=== PATIENT | female | born 1980 | race Caucasian/White ===

== ENCOUNTER 2016-11-28 15:30 | Emergency (ER) | payer OTHER ==
[~2016-11-28] VITALS: Ht 167.6 cm; Wt 50.4 kg
[~2016-11-28 15:30] MED LIST: CIPROFLOXACIN500 M1 PO; CLEOCIN150 MG PO; CLINDAMYCIN HC300 MG PO; FERGON324 MG PO; FLEXERIL10 MG PO; FLEXERIL5 MG PO; GABAPENTIN100 MG PO; IBUPROFEN800 MG PO; LORTAB 5-325 M1 EACH PO; NAPROSYN500 MG PO; NAPROXEN500 MG PO; PERCOCET 5/31 TABLET PO; PERIDEX1 ML MM; PREDNISONE10 MG PO; PREDNISONE20 MG PO; TYLENOL WITH C1 EACH PO; ULTRAM50 MG PO
[2016-11-28] MEDS ORDERED: RISPERIDONE0.5 MG PO (15:48)
[2016-11-28] MEDS ORDERED: BUSPAR7.5 MG PO (15:49)
[2016-11-28] MEDS ORDERED: IBUPROFEN800 MG PO (15:49)
[2016-11-28] MEDS ORDERED: GABAPENTIN600 MG PO (15:49)
[2016-11-28] MEDS ORDERED: ULTRACET1 TABLET PO (16:34)
[2016-11-28] MEDS ORDERED: PREDNISONE20 MG PO (16:34)
[2016-11-28 16:54] VITALS: BP 124/76
== END 2016-11-28 16:55 | disposition home or self-care (01) ==
LOC: EME 15:30
DX: G89.18 Other acute postprocedural pain (principal); K08.89 Other specified disorders of teeth and supporting structures
CPT/HCPCS: 99281; 99283; J3010; J7512

== ENCOUNTER 2016-12-02 16:33 | Emergency (ER) | payer OTHER ==
[~2016-12-02] VITALS: Ht 172.7 cm; Wt 49.2 kg
[~2016-12-02 16:33] MED LIST changes: +BUSPAR7.5 MG PO; +GABAPENTIN600 MG PO; +RISPERIDONE0.5 MG PO; +ULTRACET1 TABLET PO
[2016-12-02] MEDS ORDERED: LIDOCAINE20 MG/1 M5 PO (17:49)
[2016-12-02] MEDS ORDERED: PERIDEX1 ML MM (17:49)
[2016-12-02 18:04] VITALS: BP 134/89
== END 2016-12-02 18:05 | disposition home or self-care (01) ==
LOC: EME 16:33
DX: K08.89 Other specified disorders of teeth and supporting structures (principal)
CPT/HCPCS: 99281; 99283

== ENCOUNTER 2016-12-20 05:22 | Emergency (ER) | payer OTHER ==
[~2016-12-20] VITALS: Ht 170.2 cm; Wt 48.5 kg
[~2016-12-20 05:22] MED LIST changes: +LIDOCAINE20 MG/1 M5 PO
[2016-12-20 06:07] LABS: HEMATOCRIT 37.8 % (36.0-46.0); MCV 93.8 FL (83-99); MEAN PLAT.VOLUME 11.5 uM^3 (9.5-12.4); PLATELET COUNT 170 K/uL (156-360); RBC DIS.WIDTH-CV 14.1 % (11.8-14.6); RBC DIS.WIDTH-SD 48.4 % (39-53); RED BLOOD COUNT 4.03 M/uL (3.80-5.20); WHITE BLOOD COUNT 3.7 K/uL (4.1-10.2)
[2016-12-20 06:18] LABS: CHLORIDE 112 mEq/L (99-109); POTASSIUM 3.5 mEq/L (3.7-5.4); SODIUM 143 mEq/L (136-147)
[2016-12-20 06:20] LABS: GLUCOSE 109 mg/dL (70-99)
[2016-12-20 06:21] LABS: ANION GAP 11 MEQ/L (2-14)
[2016-12-20 06:22] LABS: INFLUENZA A VIRAL ANTIGEN NEGATIVE; INFLUENZA B VIRAL ANTIGEN NEGATIVE
[2016-12-20 06:24] LABS: GFR ESTIMATE (CALCULATED) > 59 mL/min/; UREA NITROGEN (BUN) 19 mg/dL (9-23)
[2016-12-20] MEDS ORDERED: TESSALON PERLE100 MG PO (06:31)
[2016-12-20 06:56] VITALS: BP 126/73
== END 2016-12-20 06:58 | disposition home or self-care (01) ==
LOC: EME 05:22
PROVIDERS: Emergency Medicine
DX: B34.9 Viral infection, unspecified (principal); J45.909 Unspecified asthma, uncomplicated; R10.9 Unspecified abdominal pain; F41.9 Anxiety disorder, unspecified; F17.200 Nicotine dependence, unspecified, uncomplicated
CPT/HCPCS: 71020; 80048; 85027; 87502; 94640; 99281; 99283; J1885

== ENCOUNTER 2016-12-25 19:17 | Emergency (ER) | payer OTHER ==
[~2016-12-25] VITALS: Ht 170.2 cm; Wt 47.7 kg
[~2016-12-25 19:17] MED LIST changes: +TESSALON PERLE100 MG PO
[2016-12-25 20:31] LABS: ADD MIUA? NO; BILIRUBIN NEGATIVE; BLOOD NEGATIVE; COLOR YELLOW ((YELLOW)); GLUCOSE (STRIP) NEGATIVE; KETONES NEGATIVE; LEUKOCYTES NEGATIVE; NITRITE NEGATIVE; PROTEIN (STRIP) NEGATIVE; SPECIFIC GRAVITY 1.023 (1.000-1.030); UCUL ADDED? NO; UROBILINOGEN 0.2 MG/DL (0.2-1.0)
[2016-12-25] MEDS ORDERED: VALIUM5 MG PO (23:58)
[2016-12-26 00:18] VITALS: BP 128/79
== END 2016-12-26 00:19 | disposition home or self-care (01) ==
LOC: EME 19:17
DX: M79.604 Pain in right leg (principal); M79.605 Pain in left leg; M54.5 Low back pain; F17.200 Nicotine dependence, unspecified, uncomplicated; Z71.6 Tobacco abuse counseling; Z88.0 Allergy status to penicillin; Z88.6 Allergy status to analgesic agent
CPT/HCPCS: 81003; 99281; 99284; J1100

== ENCOUNTER 2016-12-26 14:21 | Emergency (ER) | payer OTHER ==
[~2016-12-26] VITALS: Ht 170.2 cm; Wt 47.7 kg
[~2016-12-26 14:21] MED LIST changes: +VALIUM5 MG PO
[2016-12-26 18:43] LABS: HEMATOCRIT 40.5 % (36.0-46.0); MCH 30.7 PG (29.0-34.0); MCHC 33.1 G/DL (30.0-36.0); MCV 92.7 FL (83-99); PLATELET COUNT 203 K/uL (156-360); RBC DIS.WIDTH-CV 14.3 % (11.8-14.6); RBC DIS.WIDTH-SD 48.8 % (39-53); RED BLOOD COUNT 4.37 M/uL (3.80-5.20)
[2016-12-26 18:54] LABS: CHLORIDE 111 mEq/L (99-109); POTASSIUM 4.1 mEq/L (3.7-5.4); SODIUM 138 mEq/L (136-147)
[2016-12-26 18:55] LABS: GLUCOSE 105 mg/dL (70-99)
[2016-12-26 18:57] LABS: ANION GAP 9 MEQ/L (2-14)
[2016-12-26 18:59] LABS: GFR ESTIMATE (CALCULATED) > 59 mL/min/; QUANTITATIVE HCG < 4.0 MIU/ML
[2016-12-26 19:00] LABS: UREA NITROGEN (BUN) 16 mg/dL (9-23)
[2016-12-26 19:22] LABS: WHITE BLOOD COUNT 8.9 K/uL (4.1-10.2)
[2016-12-26 19:56] LABS: ERTH.SED.RATE 7 MM/HR (0-20)
[2016-12-26 22:13] LABS: ADD MIUA? YES; BILIRUBIN NEGATIVE; BLOOD NEGATIVE; COLOR YELLOW ((YELLOW)); GLUCOSE (STRIP) NEGATIVE; KETONES 5; LEUKOCYTES NEGATIVE; NITRITE NEGATIVE; PROTEIN (STRIP) 30; SPECIFIC GRAVITY 1.031 (1.000-1.030); UROBILINOGEN 0.2 MG/DL (0.2-1.0)
[2016-12-26 22:42] LABS: BACTERIA NONE SEEN /HPF; EPITHELIAL CELLS 1+ /HPF; MUCUS 2+ /LPF; RED BLOOD CELLS 0-5 /HPF (0-5); UCUL ADDED? NO; WHITE BLOOD CELLS 0-5 /HPF (0-5)
[2016-12-26 23:05] VITALS: BP 121/70
== END 2016-12-26 23:08 | disposition home or self-care (01) ==
LOC: EME 14:21
PROVIDERS: Physician Assistant
DX: M54.5 Low back pain (principal); R20.2 Paresthesia of skin; M79.651 Pain in right thigh; M79.652 Pain in left thigh; R32 Unspecified urinary incontinence; F17.200 Nicotine dependence, unspecified, uncomplicated
CPT/HCPCS: 72148; 80048; 81003; 84702; 85027; 85651; 99281; 99285; J1100; J2270

== ENCOUNTER 2017-01-26 12:58 | Emergency (ER) | payer OTHER ==
[~2017-01-26] VITALS: Ht 170.2 cm; Wt 48.4 kg
[2017-01-26] MEDS ORDERED: ULTRAM50 MG PO (14:07)
[2017-01-26] MEDS ORDERED: NAPROSYN500 MG PO (14:07)
[2017-01-26 14:31] VITALS: BP 105/65
== END 2017-01-26 14:32 | disposition home or self-care (01) ==
LOC: EME 12:58
DX: S92.514A Nondisplaced fracture of proximal phalanx of right lesser toe(s), initial encounter for closed fracture (principal); S90.31XA Contusion of right foot, initial encounter; W22.09XA Striking against other stationary object, initial encounter; Z88.0 Allergy status to penicillin; Z88.8 Allergy status to other drugs, medicaments and biological substances; Z88.6 Allergy status to analgesic agent
CPT/HCPCS: 73630; 99281; 99284

== ENCOUNTER 2017-02-20 09:32 | Emergency (ER) | payer OTHER ==
[~2017-02-20] VITALS: Ht 167.6 cm; Wt 48.6 kg
[2017-02-20 11:00] LABS: HEMATOCRIT 40.4 % (36.0-46.0); MCH 30.6 PG (29.0-34.0); MCHC 32.9 G/DL (30.0-36.0); MCV 92.9 FL (83-99); MEAN PLAT.VOLUME 11.9 uM^3 (9.5-12.4); PLATELET COUNT 179 K/uL (156-360); RBC DIS.WIDTH-CV 14.3 % (11.8-14.6); RBC DIS.WIDTH-SD 49.3 % (39-53); RED BLOOD COUNT 4.35 M/uL (3.80-5.20)
[2017-02-20 11:10] LABS: ADD MIUA? NO; BILIRUBIN NEGATIVE; BLOOD NEGATIVE; COLOR YELLOW ((YELLOW)); GLUCOSE (STRIP) NEGATIVE; KETONES NEGATIVE; LEUKOCYTES NEGATIVE; NITRITE NEGATIVE; PROTEIN (STRIP) NEGATIVE; SPECIFIC GRAVITY 1.018 (1.000-1.030); UCUL ADDED? NO; UROBILINOGEN 0.2 MG/DL (0.2-1.0)
[2017-02-20 11:17] LABS: CHLORIDE 108 mEq/L (99-109); POTASSIUM 3.9 mEq/L (3.7-5.4); SODIUM 140 mEq/L (136-147)
[2017-02-20 11:19] LABS: GLUCOSE 92 mg/dL (70-99)
[2017-02-20 11:21] LABS: ANION GAP 10 MEQ/L (2-14); TOTAL BILIRUBIN 0.4 mg/dL (0.0-1.0)
[2017-02-20 11:23] LABS: ALKALINE PHOSPHATASE 42 IU/L (3-129); GFR ESTIMATE (CALCULATED) > 59 mL/min/
[2017-02-20 11:24] LABS: UREA NITROGEN (BUN) 19 mg/dL (9-23)
[2017-02-20 11:34] LABS: QUANTITATIVE HCG < 4.0 MIU/ML
[2017-02-20] MEDS ORDERED: COLACE100 MG PO (12:06)
[2017-02-20 12:20] VITALS: BP 120/68
== END 2017-02-20 12:21 | disposition home or self-care (01) ==
LOC: EME 09:32
PROVIDERS: Nurse Practitioner Family
DX: R10.32 Left lower quadrant pain (principal); K59.00 Constipation, unspecified; R55 Syncope and collapse; R30.0 Dysuria; Z88.0 Allergy status to penicillin; Z88.6 Allergy status to analgesic agent; F17.200 Nicotine dependence, unspecified, uncomplicated
CPT/HCPCS: 74020; 80053; 81003; 84702; 85027; 93005; 99281; 99284; J3010

== ENCOUNTER 2017-07-17 16:45 | Emergency (ER) | payer OTHER ==
[~2017-07-17] VITALS: Ht 170.2 cm; Wt 49.3 kg
[~2017-07-17 16:45] MED LIST changes: +COLACE100 MG PO
[2017-07-17 17:22] LABS: HEMATOCRIT 40.1 % (36.0-46.0); MCH 31.7 PG (29.0-34.0); MCHC 33.7 G/DL (30.0-36.0); MCV 94.1 FL (83-99); MEAN PLAT.VOLUME 11.5 uM^3 (9.5-12.4); PLATELET COUNT 192 K/uL (156-360); RBC DIS.WIDTH-CV 12.7 % (11.8-14.6); RBC DIS.WIDTH-SD 43.8 % (39-53); RED BLOOD COUNT 4.26 M/uL (3.80-5.20); WHITE BLOOD COUNT 4.3 K/uL (4.1-10.2)
[2017-07-17 17:33] LABS: CHLORIDE 104 mEq/L (99-109); POTASSIUM 3.9 mEq/L (3.7-5.4); SODIUM 139 mEq/L (136-147)
[2017-07-17 17:35] LABS: GLUCOSE 98 mg/dL (70-99)
[2017-07-17 17:37] LABS: ANION GAP 10 MEQ/L (2-14)
[2017-07-17 17:39] LABS: GFR ESTIMATE (CALCULATED) > 59 mL/min/
[2017-07-17 17:40] LABS: UREA NITROGEN (BUN) 14 mg/dL (9-23)
[2017-07-17 17:42] LABS: TROP-I INTERPRETATION NEGATIVE; TROPONIN-I < 0.01 ng/mL (0.0-0.30)
[2017-07-17 17:48] LABS: QUANTITATIVE HCG < 4.0 MIU/ML
[2017-07-17] MEDS ORDERED: INDOCIN50 MG PO (20:41)
[2017-07-17 20:54] LABS: TROP-I INTERPRETATION NEGATIVE; TROPONIN-I < 0.01 ng/mL (0.0-0.30)
[2017-07-17 21:27] VITALS: BP 125/80
== END 2017-07-17 21:28 | disposition home or self-care (01) ==
LOC: EME 16:45
PROVIDERS: Physician Assistant
DX: R07.89 Other chest pain (principal); M54.2 Cervicalgia; R20.0 Anesthesia of skin; R06.00 Dyspnea, unspecified; R42 Dizziness and giddiness; I45.10 Unspecified right bundle-branch block; F17.200 Nicotine dependence, unspecified, uncomplicated
CPT/HCPCS: 71020; 80048; 84443; 84484; 84702; 85027; 85379; 93005; 99281; 99284; J1885; J3010

== ENCOUNTER 2017-08-13 16:46 | Emergency (ER) | payer OTHER ==
[~2017-08-13] VITALS: Ht 170.2 cm; Wt 51.1 kg
[~2017-08-13 16:46] MED LIST changes: +ATARAX,VISTARIL50 MG PO; +INDOCIN50 MG PO
[2017-08-13 16:53] VITALS: BP 131/80
[2017-08-13] MEDS ORDERED: NORCO 5/3251 TABLET PO (17:25)
[2017-08-13] MEDS ORDERED: CLEOCIN300 MG PO (17:25)
== END 2017-08-13 17:51 | disposition home or self-care (01) ==
LOC: RME 16:46 → EME 16:46 → RME 17:51
DX: K08.89 Other specified disorders of teeth and supporting structures (principal); K05.10 Chronic gingivitis, plaque induced; F17.200 Nicotine dependence, unspecified, uncomplicated; Z88.0 Allergy status to penicillin; Z88.6 Allergy status to analgesic agent
CPT/HCPCS: 99281; 99284

== ENCOUNTER 2017-08-26 16:19 | Emergency (ER) | payer OTHER ==
[~2017-08-26] VITALS: Ht 170.2 cm; Wt 48.4 kg
[~2017-08-26 16:19] MED LIST changes: +CLEOCIN300 MG PO; +NORCO 5/3251 TABLET PO
[2017-08-26] MEDS ORDERED: CLEOCIN150 MG PO (19:41)
[2017-08-26] MEDS ORDERED: TRAMADOL HCL50 MG PO (19:41)
[2017-08-26 20:35] VITALS: BP 111/60
== END 2017-08-26 20:36 | disposition home or self-care (01) ==
LOC: EME 16:19
PROC: 0C96XZZ Drainage of Lower Gingiva, External Approach (ICD-10-PCS; principal; 2017-08-26)
DX: K04.7 Periapical abscess without sinus (principal); Z88.0 Allergy status to penicillin
CPT/HCPCS: 99281; 99284; S0020

== ENCOUNTER 2017-08-28 16:25 | Emergency (ER) | payer OTHER ==
[~2017-08-28] VITALS: Ht 170.2 cm; Wt 50.8 kg
[~2017-08-28 16:25] MED LIST changes: +TRAMADOL HCL50 MG PO
[2017-08-28] MEDS ORDERED: ULTRAM50 MG PO (18:51)
[2017-08-28] MEDS ORDERED: PERIOGARD473 ML MM (18:51)
[2017-08-28 19:07] VITALS: BP 131/77
== END 2017-08-28 19:08 | disposition home or self-care (01) ==
LOC: EME 16:25
DX: K04.7 Periapical abscess without sinus (principal); F17.200 Nicotine dependence, unspecified, uncomplicated; Z88.5 Allergy status to narcotic agent; Z88.0 Allergy status to penicillin; Z88.6 Allergy status to analgesic agent
CPT/HCPCS: 81003; 99281; 99283

== ENCOUNTER 2017-09-19 13:15 | Emergency (ER) | payer OTHER ==
[~2017-09-19] VITALS: Ht 170.2 cm; Wt 48.1 kg
[~2017-09-19 13:15] MED LIST changes: +PERIOGARD473 ML MM
[2017-09-19] MEDS ORDERED: ULTRAM50 MG PO (16:04)
[2017-09-19 16:14] VITALS: BP 127/76
== END 2017-09-19 16:17 | disposition home or self-care (01) ==
LOC: EME 13:15
DX: M54.32 Sciatica, left side (principal); M54.16 Radiculopathy, lumbar region; F17.200 Nicotine dependence, unspecified, uncomplicated; Z88.5 Allergy status to narcotic agent; Z88.0 Allergy status to penicillin; Z88.6 Allergy status to analgesic agent
CPT/HCPCS: 99281; 99283

== ENCOUNTER 2017-09-24 12:13 | Emergency (ER) | payer OTHER ==
[~2017-09-24] VITALS: Ht 170.2 cm; Wt 47.4 kg
[2017-09-24] MEDS ORDERED: ULTRAM ER200 MG PO (13:36)
[2017-09-24] MEDS ORDERED: MOTRIN800 MG PO (13:36)
[2017-09-24 13:57] VITALS: BP 119/96
== END 2017-09-24 13:58 | disposition home or self-care (01) ==
LOC: RME 12:13 → EME 12:13 → RME 13:58
DX: S30.0XXA Contusion of lower back and pelvis, initial encounter (principal); G89.29 Other chronic pain; W10.8XXA Fall (on) (from) other stairs and steps, initial encounter; Y92.008 Other place in unspecified non-institutional (private) residence as the place of occurrence of the external cause; Y93.E9 Activity, other interior property and clothing maintenance; Z88.0 Allergy status to penicillin; Z88.5 Allergy status to narcotic agent; Z88.6 Allergy status to analgesic agent; Z88.8 Allergy status to other drugs, medicaments and biological substances
CPT/HCPCS: 72100; 99281; 99283

== ENCOUNTER 2017-10-11 11:27 | Emergency (ER) | payer OTHER ==
[~2017-10-11] VITALS: Ht 170.2 cm; Wt 47.5 kg
[~2017-10-11 11:27] MED LIST changes: +MOTRIN800 MG PO; +ULTRAM ER200 MG PO
[2017-10-11 13:39] LABS: HEMATOCRIT 41.6 % (36.0-46.0); HEMOGLOBIN 14.1 G/DL (11.9-15.5); MCH 32.1 PG (29.0-34.0); MCHC 33.9 G/DL (30.0-36.0); MCV 94.8 FL (83-99); PLATELET COUNT 195 K/uL (156-360); RBC DIS.WIDTH-CV 13.2 % (11.8-14.6); RBC DIS.WIDTH-SD 46.6 % (39-53); RED BLOOD COUNT 4.39 M/uL (3.80-5.20); WHITE BLOOD COUNT 4.5 K/uL (4.1-10.2)
[2017-10-11 13:48] LABS: ALBUMIN 4.5 g/dL (3.2-4.8)
[2017-10-11 13:49] LABS: CHLORIDE 107 mEq/L (99-109); SODIUM 139 mEq/L (136-147)
[2017-10-11 13:51] LABS: GLUCOSE 102 mg/dL (70-99)
[2017-10-11 13:53] LABS: TOTAL BILIRUBIN 0.5 mg/dL (0.0-1.0)
[2017-10-11 13:54] LABS: ALKALINE PHOSPHATASE 50 IU/L (3-129)
[2017-10-11 13:55] LABS: CREATININE 0.7 mg/dL (0.6-1.3); GFR ESTIMATE (CALCULATED) > 59 mL/min/
[2017-10-11 13:56] LABS: AST (GOT) 20 IU/L (2-34); UREA NITROGEN (BUN) 11 mg/dL (9-23)
[2017-10-11 13:58] LABS: ALT (GPT) 19 IU/L (3-49); LIPASE 10 U/L (1.0-51.0)
[2017-10-11 14:05] LABS: QUANTITATIVE HCG < 4.0 MIU/ML
[2017-10-11 15:13] LABS: APPEARANCE CLEAR ((CLEAR)); BILIRUBIN NEGATIVE; BLOOD LARGE; COLOR COLORLESS ((YELLOW)); GLUCOSE (STRIP) NEGATIVE; KETONES 5; LEUKOCYTES NEGATIVE; NITRITE NEGATIVE; PROTEIN (STRIP) NEGATIVE; SPECIFIC GRAVITY 1.006 (1.000-1.030); UROBILINOGEN 0.2 MG/DL (0.2-1.0)
[2017-10-11 15:20] LABS: BACTERIA RARE /HPF; EPITHELIAL CELLS RARE /HPF; MUCUS NONE SEEN /LPF; RED BLOOD CELLS 0-5 /HPF (0-5); WHITE BLOOD CELLS 0-5 /HPF (0-5)
[2017-10-11] MEDS ORDERED: ZOFRAN ODT4 MG PO (15:21)
[2017-10-11] MEDS ORDERED: NAPROSYN500 MG PO (15:21)
[2017-10-11 15:31] VITALS: BP 109/82
== END 2017-10-11 15:32 | disposition home or self-care (01) ==
LOC: EME 11:27
PROVIDERS: Nurse Practitioner Family
DX: N93.9 Abnormal uterine and vaginal bleeding, unspecified (principal); R10.2 Pelvic and perineal pain; F41.9 Anxiety disorder, unspecified; I34.1 Nonrheumatic mitral (valve) prolapse; F17.200 Nicotine dependence, unspecified, uncomplicated; Z88.5 Allergy status to narcotic agent; Z88.0 Allergy status to penicillin; Z88.6 Allergy status to analgesic agent
CPT/HCPCS: 76856; 80048; 80053; 81003; 83690; 84702; 85027; 99281; 99284

== ENCOUNTER 2017-11-09 08:13 | Inpatient (IN) | payer OTHER ==
[~2017-11-09] VITALS: Ht 170.2 cm; Wt 43.5 kg
[~2017-11-09 08:13] MED LIST changes: +ZOFRAN ODT4 MG PO
[2017-11-09 08:43] LABS: HEMATOCRIT 37.3 % (36.0-46.0); HEMOGLOBIN 12.4 G/DL (11.9-15.5); MCH 32.1 PG (29.0-34.0); MCHC 33.2 G/DL (30.0-36.0); MCV 96.6 FL (83-99); RBC DIS.WIDTH-CV 13.1 % (11.8-14.6); RBC DIS.WIDTH-SD 46.4 % (39-53); RED BLOOD COUNT 3.86 M/uL (3.80-5.20); WHITE BLOOD COUNT 20.2 K/uL (4.1-10.2)
[2017-11-09 08:44] LABS: PLATELET COUNT 240 K/uL (156-360)
[2017-11-09 08:51] LABS: ALBUMIN 4.4 g/dL (3.2-4.8); CHLORIDE 102 mEq/L (99-109); POTASSIUM 4.6 mEq/L (3.7-5.4); SODIUM 140 mEq/L (136-147)
[2017-11-09 08:53] LABS: GLUCOSE 132 mg/dL (70-99); TOTAL PROTEIN 7.2 g/dL (6.4-8.3)
[2017-11-09 08:55] LABS: TOTAL BILIRUBIN 0.2 mg/dL (0.0-1.0)
[2017-11-09 08:57] LABS: ALKALINE PHOSPHATASE 96 IU/L (3-129); CREATININE 1.3 mg/dL (0.6-1.3); GFR ESTIMATE (CALCULATED) 50 mL/min/
[2017-11-09 08:58] LABS: UREA NITROGEN (BUN) 26 mg/dL (9-23)
[2017-11-09 08:59] LABS: AST (GOT) 909 IU/L (2-34)
[2017-11-09 09:00] LABS: ALT (GPT) 572 IU/L (3-49)
[2017-11-09 09:06] LABS: QUANTITATIVE HCG < 4.0 MIU/ML
[2017-11-09 09:55] LABS: APPEARANCE SL.HAZY ((CLEAR)); BILIRUBIN NEGATIVE; BLOOD NEGATIVE; COLOR YELLOW ((YELLOW)); GLUCOSE (STRIP) 50; KETONES 5; LEUKOCYTES NEGATIVE; NITRITE NEGATIVE; PROTEIN (STRIP) 100; SPECIFIC GRAVITY 1.016 (1.000-1.030); UROBILINOGEN 0.2 MG/DL (0.2-1.0)
[2017-11-09 10:11] LABS: BACTERIA RARE /HPF; EPITHELIAL CELLS 1+ /HPF; MUCUS TRACE /LPF; RED BLOOD CELLS 0-5 /HPF (0-5); UCUL ADDED? NO; WHITE BLOOD CELLS 0-5 /HPF (0-5)
[2017-11-09 14:11] LABS: ACETAMINOPHEN (TYLENOL) < 10 mcg/mL (10-30); SALICYLATE < 5.0 MG/DL (15-30)
[2017-11-09 14:15] VITALS: BP 101/54
[2017-11-09 20:15] VITALS: BP 104/49
[2017-11-09 23:52] VITALS: BP 105/51
[2017-11-10 03:48] VITALS: BP 103/65
[2017-11-10 06:10] LABS: HEMATOCRIT 31.6 % (36.0-46.0); HEMOGLOBIN 10.1 G/DL (11.9-15.5); MCV 96.9 FL (83-99); PLATELET COUNT 193 K/uL (156-360); RBC DIS.WIDTH-CV 13.2 % (11.8-14.6); RBC DIS.WIDTH-SD 46.9 % (39-53); RED BLOOD COUNT 3.26 M/uL (3.80-5.20); WHITE BLOOD COUNT 6.2 K/uL (4.1-10.2)
[2017-11-10 06:26] LABS: ALBUMIN 3.1 G/DL (3.2-4.8); ALKALINE PHOSPHATASE 48 IU/L (3-129); ALT (GPT) 248 IU/L (3-49); AST (GOT) 187 IU/L (2-34); CHLORIDE 115 MEQ/L (99-109); POTASSIUM 3.9 MEQ/L (3.7-5.4); SODIUM 140 MEQ/L (136-147); TOTAL BILIRUBIN 0.2 MG/DL (0.0-1.0); TOTAL PROTEIN 4.9 G/DL (6.4-8.3); UREA NITROGEN (BUN) 15 mg/dL (9-23)
[2017-11-10 06:36] LABS: CREATININE 0.8 MG/DL (0.6-1.3); GFR ESTIMATE (CALCULATED) > 59 mL/min/; GLUCOSE 83 mg/dL (70-99)
[2017-11-10 06:57] VITALS: BP 104/58
[2017-11-10] MEDS ORDERED: ZOFRAN4 MG PO (11:21)
[2017-11-10] MEDS ORDERED: PEPCID20 MG PO (11:21)
[2017-11-10] MEDS ORDERED: TRAMADOL HCL50 MG PO (11:21)
[2017-11-10 11:33] LABS: HEPATITIS B SURFACE ANTIGEN Nonreactive; HEPATITIS C ANTIBODY Nonreactive
[2017-11-10 11:35] LABS: ANTI-HEPATITIS A VIRUS (IGM) Nonreactive; ANTI-HEPATITIS B CORE (IGM) Nonreactive
[2017-11-10 16:20] VITALS: BP 114/70
[2017-11-11] VITALS: BP 117/75
[2017-11-11 06:14] LABS: BASOPHIL (%) 0.5 % (0-1); EOSINOPHIL (%) 0.5 % (0-5); HEMATOCRIT 32.3 % (36.0-46.0); HEMOGLOBIN 10.7 G/DL (11.9-15.5); IMMATURE GRANULOCYTE (%) 0.2 % (0.0-0.7); LYMPHOCYTE (%) 31.6 % (15-42); LYMPHOCYTE COUNT 1.3 K/uL (1.0-2.8); MCH 31.7 PG (29.0-34.0); MCHC 33.1 G/DL (30.0-36.0); MCV 95.6 FL (83-99); MONOCYTE (%) 10.5 % (3-12); MONOCYTE COUNT 0.4 K/uL (0-0.8); NEUTROPHIL (%) 56.7 % (45-76); NEUTROPHIL COUNT 2.4 K/uL (1.8-6.4); PLATELET COUNT 217 K/uL (156-360); RBC DIS.WIDTH-CV 13.5 % (11.8-14.6); RBC DIS.WIDTH-SD 47.5 % (39-53); RED BLOOD COUNT 3.38 M/uL (3.80-5.20); WHITE BLOOD COUNT 4.2 K/uL (4.1-10.2)
[2017-11-11 06:48] LABS: ALKALINE PHOSPHATASE 47 IU/L (3-129); ALT (GPT) 160 IU/L (3-49); AST (GOT) 75 IU/L (2-34); CHLORIDE 114 MEQ/L (99-109); CREATININE 0.6 MG/DL (0.6-1.3); GFR ESTIMATE (CALCULATED) > 59 mL/min/; GLUCOSE 83 mg/dL (70-99); LIPASE 8 U/L (1.0-51.0); POTASSIUM 3.6 MEQ/L (3.7-5.4); SODIUM 141 MEQ/L (136-147); TOTAL BILIRUBIN 0.3 MG/DL (0.0-1.0); TOTAL PROTEIN 4.9 G/DL (6.4-8.3); UREA NITROGEN (BUN) 11 mg/dL (9-23)
[2017-11-11 06:53] LABS: MONOSPOT (MONONUCLEOSIS SEROL) NEGATIVE
[2017-11-11 07:05] VITALS: BP 120/69
[2017-11-11 08:29] LABS: TROP-I INTERPRETATION NEGATIVE; TROPONIN-I 0.03 ng/mL (0.0-0.30)
[2017-11-11 08:52] LABS: FERRITIN 43 NG/ML (10-291)
[2017-11-11] MEDS ORDERED: ULTRAM50 MG PO (11:26)
[2017-11-11] MEDS ORDERED: CLARITIN10 M3 PO (11:26)
[2017-11-11] MEDS ORDERED: TRAZODONE HCL50 MG PO (11:26)
[2017-11-11 12:30] VITALS: BP 119/76
[2017-11-11 15:22] VITALS: BP 128/65
[2017-11-11 20:33] VITALS: BP 98/50
[2017-11-11 23:53] VITALS: BP 98/57
[2017-11-12 04:12] VITALS: BP 120/61
[2017-11-12 07:19] LABS: ALKALINE PHOSPHATASE 47 IU/L (3-129); ALT (GPT) 123 IU/L (3-49); AST (GOT) 41 IU/L (2-34); CHLORIDE 111 MEQ/L (99-109); CREATININE 0.8 MG/DL (0.6-1.3); GFR ESTIMATE (CALCULATED) > 59 mL/min/; GLUCOSE 103 mg/dL (70-99); POTASSIUM 3.7 MEQ/L (3.7-5.4); SODIUM 140 MEQ/L (136-147); TOTAL BILIRUBIN 0.4 MG/DL (0.0-1.0); TOTAL PROTEIN 4.7 G/DL (6.4-8.3); UREA NITROGEN (BUN) 10 mg/dL (9-23)
[2017-11-12 09:24] LABS: THYROTROPIN (TSH) 10.7 MIU/L (0.4-5.5)
[2017-11-12 09:44] VITALS: BP 135/75
[2017-11-12] MEDS ORDERED: LEVOTHYROXINE25 MCG PO (11:07)
[2017-11-13 17:47] LABS: ANTI-SMOOTH MUSCLE (Actin)+ <20 U (<20); MITOCHONDRIAL (M2) ANTIBODIES+ <=20.0 U (<=20.0)
[2017-11-15 18:04] LABS: HCV RNA (IU/mL) <15 IU/mL (())
[2017-11-16 18:59] LABS: HCV RNA (LOG IU/mL) <1.18 (())
== END 2017-11-12 12:01 | disposition home or self-care (01) | DRG 392 ==
LOC: EME 08:13 → EDOF 12:50 → 2EASTP 12:50 → ENRESERV 12:51 → EDOF 13:09 → 2EASTP 14:01
PROVIDERS: Hospitalist; Internal Medicine Gastroenterology; Nurse Practitioner Family; Physician Assistant
PROC: 0DB68ZX Excision of Stomach, Via Natural or Artificial Opening Endoscopic, Diagnostic (ICD-10-PCS; principal; 2017-11-12)
DX: R10.0 Acute abdomen (principal); Z68.1 Body mass index [BMI] 19.9 or less, adult; E87.2 Acidosis; E03.9 Hypothyroidism, unspecified; R74.0 Nonspecific elevation of levels of transaminase and lactic acid dehydrogenase [LDH]; G43.A0 Cyclical vomiting, in migraine, not intractable; B36.0 Pityriasis versicolor; E87.6 Hypokalemia; F17.210 Nicotine dependence, cigarettes, uncomplicated; I36.1 Nonrheumatic tricuspid (valve) insufficiency; I37.1 Nonrheumatic pulmonary valve insufficiency; F41.9 Anxiety disorder, unspecified; K29.60 Other gastritis without bleeding; K57.30 Diverticulosis of large intestine without perforation or abscess without bleeding; H93.19 Tinnitus, unspecified ear; R00.1 Bradycardia, unspecified; H91.93 Unspecified hearing loss, bilateral; I34.1 Nonrheumatic mitral (valve) prolapse; K82.8 Other specified diseases of gallbladder; R63.6 Underweight; D64.9 Anemia, unspecified; M54.30 Sciatica, unspecified side; Z88.0 Allergy status to penicillin; Z88.5 Allergy status to narcotic agent; Z82.49 Family history of ischemic heart disease and other diseases of the circulatory system; Z83.3 Family history of diabetes mellitus
CPT/HCPCS: 74177; 76705; 80053; 80074; 81003; 82728; 83516 90; 83690; 84439; 84443; 84484; 84702; 85025; 85027; 86256 90; 86308; 87040; 87502; 87522 90; 88305; 88342 TC; 93005; 93306; 99281; 99285; C9113; G0480; J0744; J1170; J1650; J1885; J2250; J2405; J7030; S0028; S0030

== ENCOUNTER 2017-11-28 18:58 | Emergency (ER) | payer OTHER ==
[~2017-11-28] VITALS: Ht 170.2 cm; Wt 46.7 kg
[~2017-11-28 18:58] MED LIST changes: +CLARITIN10 M3 PO; +LEVOTHYROXINE25 MCG PO; +PEPCID20 MG PO; +TRAZODONE HCL50 MG PO; +ZOFRAN4 MG PO
[2017-11-28 19:59] LABS: HEMATOCRIT 37.8 % (36.0-46.0); HEMOGLOBIN 12.6 G/DL (11.9-15.5); MCH 31.4 PG (29.0-34.0); MCHC 33.3 G/DL (30.0-36.0); MCV 94.3 FL (83-99); PLATELET COUNT 164 K/uL (156-360); RBC DIS.WIDTH-CV 13.2 % (11.8-14.6); RBC DIS.WIDTH-SD 45.6 % (39-53); RED BLOOD COUNT 4.01 M/uL (3.80-5.20); WHITE BLOOD COUNT 13.3 K/uL (4.1-10.2)
[2017-11-28 20:00] LABS: CHLORIDE 104 mEq/L (99-109); POTASSIUM 3.7 mEq/L (3.7-5.4); SODIUM 140 mEq/L (136-147)
[2017-11-28 20:02] LABS: GLUCOSE 104 mg/dL (70-99)
[2017-11-28 20:06] LABS: CREATININE 0.7 mg/dL (0.6-1.3); GFR ESTIMATE (CALCULATED) > 59 mL/min/
[2017-11-28 20:07] LABS: UREA NITROGEN (BUN) 16 mg/dL (9-23)
[2017-11-28 22:18] LABS: APPEARANCE SL.HAZY ((CLEAR)); BILIRUBIN NEGATIVE; BLOOD SMALL; COLOR YELLOW ((YELLOW)); GLUCOSE (STRIP) 150; KETONES NEGATIVE; LEUKOCYTES NEGATIVE; NITRITE NEGATIVE; PROTEIN (STRIP) 30; SPECIFIC GRAVITY 1.019 (1.000-1.030); UROBILINOGEN 0.2 MG/DL (0.2-1.0)
[2017-11-28 22:26] LABS: AMPHETAMINE NEGATIVE (500 ng/mL); BARBITURATES NEGATIVE (200 ng/mL); BENZODIAZEPINES NEGATIVE (150 ng/mL); BUPRENORPHINE NEGATIVE (10 ng/mL); COCAINE NEGATIVE (150 ng/mL); METHADONE NEGATIVE (200 ng/mL); METHAMPHETAMINE NEGATIVE (500 ng/mL); OPIATES (MORPHINE) NEGATIVE (100 ng/mL); OXYCODONE PRESUMPTIVE POSITIVE (100 ng/mL); PHENCYCLIDINE NEGATIVE (25 ng/mL); PROPOXYPHENE NEGATIVE (300 ng/mL); THC CANNABINOIDS NEGATIVE (50 ng/mL); TRICYCLIC ANTIDEPRESSANTS NEGATIVE (300 ng/mL)
[2017-11-28 22:29] LABS: BACTERIA RARE /HPF; EPITHELIAL CELLS 1+ /HPF; HYALINE CASTS 20-30 /LPF; MUCUS TRACE /LPF; RED BLOOD CELLS 0-5 /HPF (0-5); UCUL ADDED? NO; WHITE BLOOD CELLS 0-5 /HPF (0-5)
[2017-11-28 23:46] VITALS: BP 108/73
== END 2017-11-28 23:50 | disposition home or self-care (01) ==
LOC: EME 18:58
PROVIDERS: Emergency Medicine
DX: T40.2X1A Poisoning by other opioids, accidental (unintentional), initial encounter (principal); E03.9 Hypothyroidism, unspecified; F41.9 Anxiety disorder, unspecified; K76.0 Fatty (change of) liver, not elsewhere classified; I34.1 Nonrheumatic mitral (valve) prolapse; F17.200 Nicotine dependence, unspecified, uncomplicated; Z88.0 Allergy status to penicillin; Z88.5 Allergy status to narcotic agent
CPT/HCPCS: 80048; 81003; 85027; 93005; 99281; 99284; J2310

== ENCOUNTER 2018-01-02 07:36 | Day surgery (SDC) | payer OTHER ==
[~2018-01-02] VITALS: Ht 170.2 cm; Wt 48.1 kg
[~2018-01-02 07:36] MED LIST changes: +NEURONTIN800 MG PO; +SYNTHROID50 MCG PO
[2018-01-02 08:08] VITALS: BP 123/68
[2018-01-02 08:15] LABS: BASOPHIL (%) 0.2 % (0-1); EOSINOPHIL (%) 1.4 % (0-5); EOSINOPHIL COUNT 0.1 K/uL (0-0.3); HEMATOCRIT 38.3 % (36.0-46.0); HEMOGLOBIN 12.5 G/DL (11.9-15.5); IMMATURE GRANULOCYTE (%) 0.2 % (0.0-0.7); LYMPHOCYTE (%) 25.1 % (15-42); LYMPHOCYTE COUNT 1.4 K/uL (1.0-2.8); MCH 30.4 PG (29.0-34.0); MCHC 32.6 G/DL (30.0-36.0); MCV 93.2 FL (83-99); MONOCYTE (%) 10.1 % (3-12); MONOCYTE COUNT 0.6 K/uL (0-0.8); NEUTROPHIL COUNT 3.5 K/uL (1.8-6.4); PLATELET COUNT 189 K/uL (156-360); RBC DIS.WIDTH-CV 13.2 % (11.8-14.6); RED BLOOD COUNT 4.11 M/uL (3.80-5.20); WHITE BLOOD COUNT 5.5 K/uL (4.1-10.2)
[2018-01-02 08:35] LABS: ALBUMIN 4.1 G/DL (3.2-4.8); ALKALINE PHOSPHATASE 50 IU/L (3-129); ALT (GPT) 17 IU/L (3-49); AST (GOT) 20 IU/L (2-34); CHLORIDE 104 MEQ/L (99-109); CREATININE 0.7 MG/DL (0.6-1.3); GFR ESTIMATE (CALCULATED) > 59 mL/min/; GLUCOSE 93 mg/dL (70-99); POTASSIUM 3.6 MEQ/L (3.7-5.4); SODIUM 138 MEQ/L (136-147); TOTAL BILIRUBIN 0.7 MG/DL (0.0-1.0); TOTAL PROTEIN 6.3 G/DL (6.4-8.3); UREA NITROGEN (BUN) 12 mg/dL (9-23)
[2018-01-02 08:39] LABS: QUANTITATIVE HCG < 4.0 MIU/ML
[2018-01-02] MEDS ORDERED: OXYCODONE HCL5 MG PO (12:11)
[2018-01-02 13:40] VITALS: BP 130/66
[2018-01-02 14:40] VITALS: BP 128/77
== END 2018-01-02 14:10 | disposition home or self-care (01) ==
LOC: SDC 07:36
PROVIDERS: Obstetrics & Gynecology
DX: N93.9 Abnormal uterine and vaginal bleeding, unspecified (principal); Z30.2 Encounter for sterilization; D64.9 Anemia, unspecified; F17.210 Nicotine dependence, cigarettes, uncomplicated; G43.109 Migraine with aura, not intractable, without status migrainosus; E03.9 Hypothyroidism, unspecified; Z83.3 Family history of diabetes mellitus; Z82.49 Family history of ischemic heart disease and other diseases of the circulatory system; Z83.79 Family history of other diseases of the digestive system; Z82.0 Family history of epilepsy and other diseases of the nervous system; Z88.0 Allergy status to penicillin; Z88.8 Allergy status to other drugs, medicaments and biological substances
CPT/HCPCS: 80053; 84702; 85025; 86850; 86900; 86901; 88305; J0131; J1100; J1170; J1885; J2250; J2405; J2710; J3010; J7643; S0020

== ENCOUNTER 2018-02-02 17:06 | Emergency (ER) | payer OTHER ==
[~2018-02-02] VITALS: Ht 167.6 cm; Wt 50.2 kg
[~2018-02-02 17:06] MED LIST changes: +OXYCODONE HCL5 MG PO
[2018-02-02 17:32] VITALS: BP 124/78
[2018-02-02] MEDS ORDERED: ROXICODONE5 MG PO (19:43)
[2018-02-02] MEDS ORDERED: AMOXICILLIN500 MG PO (19:43)
== END 2018-02-02 20:11 | disposition home or self-care (01) ==
LOC: EME 17:06
PROC: 3E0T3BZ Introduction of Anesthetic Agent into Peripheral Nerves and Plexi, Percutaneous Approach (ICD-10-PCS; principal; 2018-02-02)
DX: K02.9 Dental caries, unspecified (principal); G89.29 Other chronic pain; F17.200 Nicotine dependence, unspecified, uncomplicated; F41.9 Anxiety disorder, unspecified; Z88.5 Allergy status to narcotic agent; Z88.0 Allergy status to penicillin
CPT/HCPCS: 99281; 99283

== ENCOUNTER 2018-02-13 14:26 | Emergency (ER) | payer OTHER ==
[~2018-02-13] VITALS: Ht 170.2 cm; Wt 48.4 kg
[~2018-02-13 14:26] MED LIST changes: +AMOXICILLIN500 MG PO; +ROXICODONE5 MG PO
[2018-02-13] MEDS ORDERED: ULTRAM50 MG PO (15:23)
[2018-02-13] MEDS ORDERED: CLEOCIN300 MG PO (15:23)
[2018-02-13 16:04] VITALS: BP 121/87
== END 2018-02-13 16:05 | disposition home or self-care (01) ==
LOC: EME 14:26
PROC: 3E0T3BZ Introduction of Anesthetic Agent into Peripheral Nerves and Plexi, Percutaneous Approach (ICD-10-PCS; principal; 2018-02-13)
DX: K02.9 Dental caries, unspecified (principal); Z88.0 Allergy status to penicillin; Z88.5 Allergy status to narcotic agent; Z88.6 Allergy status to analgesic agent
CPT/HCPCS: 99281; 99283

== ENCOUNTER 2018-02-17 15:18 | Emergency (ER) | payer OTHER ==
[~2018-02-17] VITALS: Ht 170.2 cm; Wt 48.7 kg
[2018-02-17] MEDS ORDERED: ULTRAM50 MG PO (17:22)
[2018-02-17 17:30] VITALS: BP 125/87
== END 2018-02-17 17:30 | disposition home or self-care (01) ==
LOC: EME 15:18
PROC: 3E0T3BZ Introduction of Anesthetic Agent into Peripheral Nerves and Plexi, Percutaneous Approach (ICD-10-PCS; principal; 2018-02-17)
DX: K08.89 Other specified disorders of teeth and supporting structures (principal); R22.0 Localized swelling, mass and lump, head; F17.200 Nicotine dependence, unspecified, uncomplicated
CPT/HCPCS: 99281; 99283

== ENCOUNTER 2018-02-23 12:07 | Emergency (ER) | payer OTHER ==
[~2018-02-23] VITALS: Ht 170.2 cm; Wt 49.4 kg
[2018-02-23 15:22] VITALS: BP 128/90
== END 2018-02-23 15:23 | disposition home or self-care (01) ==
LOC: EME 12:07
DX: S70.02XA Contusion of left hip, initial encounter (principal); S09.90XA Unspecified injury of head, initial encounter; W01.0XXA Fall on same level from slipping, tripping and stumbling without subsequent striking against object, initial encounter; F17.200 Nicotine dependence, unspecified, uncomplicated; Z87.19 Personal history of other diseases of the digestive system; Z88.0 Allergy status to penicillin; Z88.5 Allergy status to narcotic agent; Z88.6 Allergy status to analgesic agent
CPT/HCPCS: 73502; 99281; 99283

== ENCOUNTER 2018-03-04 13:47 | Emergency (ER) | payer OTHER ==
[~2018-03-04] VITALS: Ht 170.2 cm; Wt 42.6 kg
[2018-03-04] MEDS ORDERED: CLEOCIN300 MG PO (14:45)
[2018-03-04] MEDS ORDERED: ULTRAM50 MG PO ×2 (14:45→14:48)
[2018-03-04 15:00] VITALS: BP 84/71
== END 2018-03-04 15:04 | disposition home or self-care (01) ==
LOC: EME 13:47
DX: K02.9 Dental caries, unspecified (principal); F17.200 Nicotine dependence, unspecified, uncomplicated; F41.9 Anxiety disorder, unspecified; Z88.5 Allergy status to narcotic agent; Z88.0 Allergy status to penicillin
CPT/HCPCS: 99281; 99284

== ENCOUNTER 2018-03-12 09:56 | Emergency (ER) | payer OTHER ==
[~2018-03-12] VITALS: Ht 170.2 cm; Wt 48.6 kg
[2018-03-12 10:39] LABS: HEMATOCRIT 41.6 % (36.0-46.0); HEMOGLOBIN 13.9 G/DL (11.9-15.5); MCH 31.5 PG (29.0-34.0); MCHC 33.4 G/DL (30.0-36.0); MCV 94.3 FL (83-99); PLATELET COUNT 177 K/uL (156-360); RBC DIS.WIDTH-CV 14.1 % (11.8-14.6); RBC DIS.WIDTH-SD 48.8 % (39-53); RED BLOOD COUNT 4.41 M/uL (3.80-5.20); WHITE BLOOD COUNT 4.8 K/uL (4.1-10.2)
[2018-03-12 10:49] LABS: CHLORIDE 106 mEq/L (99-109); POTASSIUM 4.4 mEq/L (3.7-5.4); SODIUM 139 mEq/L (136-147)
[2018-03-12 10:51] LABS: GLUCOSE 109 mg/dL (70-99)
[2018-03-12 10:55] LABS: CREATININE 0.7 mg/dL (0.6-1.3); GFR ESTIMATE (CALCULATED) > 59 mL/min/
[2018-03-12 10:56] LABS: UREA NITROGEN (BUN) 15 mg/dL (9-23)
[2018-03-12 11:25] LABS: APPEARANCE CLEAR ((CLEAR)); BILIRUBIN NEGATIVE; BLOOD NEGATIVE; COLOR YELLOW ((YELLOW)); GLUCOSE (STRIP) NEGATIVE; KETONES NEGATIVE; LEUKOCYTES NEGATIVE; NITRITE NEGATIVE; PROTEIN (STRIP) NEGATIVE; SPECIFIC GRAVITY 1.016 (1.000-1.030); UCUL ADDED? NO; UROBILINOGEN 0.2 MG/DL (0.2-1.0)
[2018-03-12 11:33] LABS: AMPHETAMINE NEGATIVE (500 ng/mL); BARBITURATES NEGATIVE (200 ng/mL); BENZODIAZEPINES NEGATIVE (150 ng/mL); BUPRENORPHINE NEGATIVE (10 ng/mL); COCAINE NEGATIVE (150 ng/mL); METHADONE NEGATIVE (200 ng/mL); METHAMPHETAMINE NEGATIVE (500 ng/mL); OPIATES (MORPHINE) NEGATIVE (100 ng/mL); OXYCODONE NEGATIVE (100 ng/mL); PHENCYCLIDINE NEGATIVE (25 ng/mL); PROPOXYPHENE NEGATIVE (300 ng/mL); THC CANNABINOIDS NEGATIVE (50 ng/mL); TRICYCLIC ANTIDEPRESSANTS NEGATIVE (300 ng/mL)
[2018-03-12] MEDS ORDERED: FLEXERIL10 MG PO (11:56)
[2018-03-12 12:02] VITALS: BP 154/102
== END 2018-03-12 12:04 | disposition home or self-care (01) ==
LOC: EME 09:56
PROVIDERS: Nurse Practitioner Family
DX: M54.9 Dorsalgia, unspecified (principal); R10.9 Unspecified abdominal pain; Z76.5 Malingerer [conscious simulation]; F41.9 Anxiety disorder, unspecified; F17.200 Nicotine dependence, unspecified, uncomplicated; Z88.5 Allergy status to narcotic agent; Z88.0 Allergy status to penicillin; Z88.6 Allergy status to analgesic agent; Z88.8 Allergy status to other drugs, medicaments and biological substances
CPT/HCPCS: 80048; 81003; 85027; 99281; 99285